=== PATIENT | male | born 1985 | race American Indian/Alaskan Native ===

== ENCOUNTER 2016-08-11 19:16 | Emergency (ER) | payer OTHER ==
--- NOTE | 2016-08-11 20:02 | Emergency Department Report ---
Chief Complaint: Chest Pain Stated Complaint: CHEST PAIN, LEFT ARM NUMBNESS Time Seen by Provider: 08/11/16 19:57 - HPI History of Present Illness: Patient is a 30 y/o male with history seizures who presents due to left arm tingling x 7 hours ago and mid sternal chest pain x 40 minutes. Patient states that the chest pain is constant, patient denies states he had SOB that has now resolved. Patient denies any diaphoresis. - ROS Review of Systems: see HPI - Exam Vital Signs: Vital Signs 08/11/16 19:28 Temperature 98.1 F Pulse Rate 67 Respiratory 18 Rate Blood Pressure 128/88 O2 Sat by Pulse 100 Oximetry Physical Exam: nad. patient had reproducible midsternal tenderness. MSE screening note: Focused history and physical exam performed. Due to findings the following was ordered: ED Disposition for MSE Condition: Stable
[2016-08-11 20:28] LABS: Basophils % (Auto) 1.1 % (0.0-1.8); Eosinophils % (Auto) 3.4 % (0.0-4.3); Hematocrit 45.2 % (35.5-45.6); Hemoglobin 14.7 gm/dl (11.8-15.2); Mean Corpuscular HGB Conc 33 % (32-34); Mean Corpuscular Hemoglobin 30 pg (28-32); Mean Corpuscular Volume 91 fl (84-94); Platelet Count 280 K/mm3 (140-440); Red Blood Count 4.96 M/mm3 (3.65-5.03); Red Cell Distribution Width 12.7 % (13.2-15.2); White Blood Count 11.2 K/mm3 (4.5-11.0)
[2016-08-11 20:50] LABS: Creatine Kinase MB 1.6 ng/mL (0.0-4.0)
[2016-08-11 20:54] LABS: Alanine Aminotransferase 21 units/L (7-56); Albumin/Globulin Ratio 1.6 %; Alkaline Phosphatase 60 units/L (35-129); BUN/Creatinine Ratio 15.55; Bilirubin,Total 0.8 mg/dL (0.1-1.2); Blood Urea Nitrogen 14 mg/dL (9-20); Calcium 9.1 mg/dL (8.4-10.2); Carbon Dioxide 26 mmol/L (22-30); Creatine Kinase 243 units/L (55-170); Glucose 88 mg/dL (75-100); Potassium 4.2 mmol/L (3.6-5.0); Sodium 143 mmol/L (137-145); Total Protein 6.5 g/dL (6.3-8.2)
[2016-08-11 21:01] LABS: Anion Gap 18 mmol/L; Bilirubin,Direct < 0.2 mg/dL (0-0.2); Bilirubin,Indirect 0.6 mg/dL
--- NOTE | 2016-08-12 07:36 | XRay Report ---
ROUTINE CHEST, TWO VIEWS: HISTORY: chest pain. The trachea, heart, mediastinal contour, lung coyle and bony thorax are unremarkable. IMPRESSION: Unremarkable chest x-ray.
--- NOTE | 2016-08-13 15:23 | ED Elopement Review ---
ED Pt Elopement review - Results review Lab results: Laboratory Tests 08/11/16 08/11/16 20:09 20:09 WBC 11.2 H RBC 4.96 Hgb 14.7 Hct 45.2 MCV 91 MCH 30 MCHC 33 RDW 12.7 L Plt Count 280 Lymph % (Auto) 31.1 [place] % (Auto) 7.9 H Eos % (Auto) 3.4 Baso % (Auto) 1.1 Lymph # 3.5 [place] # 0.9 H Eos # 0.4 Baso # 0.1 Seg Neutrophils % 56.5 Seg Neutrophils # 6.3 Sodium 143 Potassium 4.2 Chloride 103.0 Carbon Dioxide 26 Anion Gap 18 BUN 14 Creatinine 0.9 Estimated GFR > 60 BUN/Creatinine Ratio 15.55 Glucose 88 Calcium 9.1 Total Bilirubin 0.8 Direct Bilirubin < 0.2 Indirect Bilirubin 0.6 AST 24 ALT 21 Alkaline Phosphatase 60 Total Creatine Kinase 243 H CK-MB (CK-2) 1.6 CK-MB (CK-2) Rel Index 0.6 Troponin T < 0.010 Total Protein 6.5 Albumin 4.0 Albumin/Globulin Ratio 1.6 - Call Back decision Pt Call Back Decision: No action required
== END 2016-08-11 20:15 | disposition left against medical advice (07) ==
LOC: ED 19:16 → EEVIPCON 19:16 → ED 20:15
DX: R20.2 Paresthesia of skin (principal); R07.89 Other chest pain; Z53.21 Procedure and treatment not carried out due to patient leaving prior to being seen by health care provider
CPT/HCPCS: 36415; 71020; 80053; 80074; 82550; 82553; 84484; 85025; 93005; 93010